=== PATIENT | female | born 1970 | race Caucasian/White ===

== ENCOUNTER 2017-04-21 09:07 | Emergency (ER) | payer OTHER ==
[2017-04-21 09:16] VITALS: BP 147/81
--- NOTE | 2017-04-21 10:08 | UC ---
Respiratory Complaint HPI - HPI Summary HPI Summary: 46 y/o female presents to the urgent care c/o productive cough, SOB for the past 17 days. Pt states cough is producing a green sputum, she fever and pleuritic chest pain after coughing yesterday. Pt has been taking /dayquill w/ o any relief of symptoms. pt denies SOB, MELCHOR, chest pain, abdominal pain, N/V/D. Pt stopped smoking 1 year ago - History of Current Complaint Hx Obtained From: Patient Hx Last Menstrual Period: ended Wednesday ?: No Onset/Duration: Gradual Onset, Lasting Weeks - 2 weeks Timing: Constant Severity Initially: Moderate Severity Currently: Moderate Pain Intensity: 0 Pain Scale Used: 0-10 Numeric Character: Cough: Productive, Sputum Description: - sputum <Meli Alcantar - Last Filed: 04/22/17 00:46> <Ne Garcia - Last Filed: 04/22/17 15:03> - History of Current Complaint Chief Complaint: UCRespiratory Stated Complaint: COUGH, SORE THROAT Time Seen by Provider: 04/21/17 10:05 - Allergies/Home Medications Allergies/Adverse Reactions: Allergies Allergy/AdvReac Type Severity Reaction Status Date / Time Sulfa Antibiotics Allergy Intermediate Hives Verified 04/21/17 09:11 PMH/Surg Hx/FS Hx/Imm Hx Previously Healthy: Yes Other Respiratory History: sleep apnea Psychological History: Anxiety, Depression - Surgical History Surgical History: Yes Surgery Procedure, Year, and Place: wisdom teeth extracted. fx finger repair. ovarian cyst - Family History Known Family History: Positive: Cardiac Disease, Hypertension, Diabetes - Social History Occupation: Employed Full-time Lives: With Family Alcohol Use: Occasionally Substance Use Type: None Smoking Status (MU): Never Smoked Tobacco Type: Cigarettes Amount Used/How Often: 1/2 ppd Length of Time of Smoking/Using Tobacco: 15 years Have You Smoked in the Last Year: No - Immunization History Most Recent Influenza Vaccination: fall 2014 <Meli Alcantar - Last Filed: 04/22/17 00:46> Review of Systems Constitutional: Fever - mild low grade fever at home Skin: Negative Eyes: Negative ENT: Negative Respiratory: Shortness Of Breath, Cough - productive with green sputum Cardiovascular: Negative Gastrointestinal: Negative Genitourinary: Negative Motor: Negative Neurovascular: Negative Musculoskeletal: Negative Neurological: Negative Psychological: Negative Is Patient Immunocompromised?: No All Other Systems Reviewed And Are Negative: Yes <Meli Alcantar - Last Filed: 04/22/17 00:46> Physical Exam Triage Information Reviewed: Yes Vital Signs: Initial Vital Signs Temp 98.9 F 04/21/17 09:12 Pulse 101 04/21/17 09:12 Resp 16 04/21/17 09:12 BP 147/81 04/21/17 09:12 Pulse Ox 98 04/21/17 09:12 - Additional Comments Vital Signs Reviewed: Yes General: well developed, well nourished female sitting in the examining table w/ o any apparent distress Eyes: Positive: Conjunctiva Clear - PERRLA, EOMI, fundi grossly normal ENT: Positive: Normal ENT inspection, Hearing grossly normal, Pharynx normal, Nasal congestion - edematous and erythematous nasal mucosa, Nasal drainage - yellowish drainage, TMs normal. Negative: Tonsillar swelling, Tonsillar exudate Neck: Positive: Supple, Nontender, No Lymphadenopathy Respiratory: no orthopnea or dyspnea. Able to speak in full sentences, no retractions or accessory muscle use, no tripod position, stridor, or head bobbing. breath sound present. B/L posterior lungs with scattered rhonchi and mild wheezes. Cardiovascular: Positive: RRR, No Murmur, Pulses Normal, Brisk Capillary Refill Abdomen Description: Positive: Nontender, No Organomegaly, Soft. Negative: CVA Tenderness (R), CVA Tenderness (L) Bowel Sounds: Positive: Present Musculoskeletal Exam: Normal Musculoskeletal: Positive: Strength Intact, ROM Intact, No Edema Neurological Exam: Normal Psychological Exam: Normal Skin Exam: Normal <Meli Alcantar - Last Filed: 04/22/17 00:46> Vital Signs: Initial Vital Signs Temp 98.9 F 04/21/17 09:12 Pulse 101 04/21/17 09:12 Resp 16 04/21/17 09:12 BP 147/81 04/21/17 09:12 Pulse Ox 98 04/21/17 09:12 <Ne Garcia - Last Filed: 04/22/17 15:03> UC Diagnostic Evaluation - Laboratory O2 Sat by Pulse Oximetry: 98 <Meli Alcantar - Last Filed: 04/22/17 00:46> - EKG Cardiac Rate: NL <Ne Garcia - Last Filed: 04/22/17 15:03> Respiratory Course/Dx - Course Course Of Treatment: 46 y/o female presents to the urgent care c/o productive cough, SOB for the past 17 days. Pt states cough is producing a green sputum, she fever and pleuritic chest pain after coughing yesterday. Pt has been taking /dayquill w/o any relief of symptoms. pt denies SOB, MELCHOR, chest pain, abdominal pain, N/V/D. Pt stopped smoking 1 year ago.Hx obtained. Pt with scattered wheezes and rhonchi in B/L posteior lungs. Chest X-ray ordered to r/o pneumonia. Impression: No active Cardiopulmonary disease observed. O2sat: 98% Pt was everyday smoker who stopped 1 year ago. Prednisone 60 mg PO ordered and Duneb treatment ordered. Pt tolerated well medications and her lungs improved. Pt states feeling better. Pt will be tX for Acute Bronchitis, Rx Z-ronaldo PO , Prednisone taper dose and Inhaler. Strongly advised to f/u with her PCP for further management. She may be developing COPD. She also has elevated BP today , advised to decrease salt in her diet and monitor BP, if it continues to be elevated to f/u with her PCP. Pt understood and agreed with D/C instructions and left the clinic hemodynamically stable. - Differential Dx/Diagnosis Differential Diagnosis/HQI/PQRI: Asthma, Bronchitis, Influenza, Laryngitis, Lower Resp Infection, Sinusitis Provider Diagnoses: 1- Acute bronchitis. 2- elevated BP w/o Hx of HTN <Meli Alcantar - Last Filed: 04/22/17 00:46> Discharge <Meli Alcantar - Last Filed: 04/22/17 00:46> <Ne Garcia - Last Filed: 04/22/17 15:03> - Discharge Plan Condition: Stable Disposition: HOME Prescriptions: Albuterol HFA INHALER* [Ventolin HFA Inhaler*] 1 - 2 puff INH Q6H PRN #1 mdi PRN Reason: bronchospasm Azithromyxin RONALDO (NF) [Z-Ronaldo (Zithromax) 250 mg tabs #6] 2 tab PO .TODAY, THEN 1 DAILY #6 tab predniSONE TAB* [Deltasone TAB*] 20 mg PO DAILY #8 tab Patient Education Materials: Acute Bronchitis (ED), Low Sodium Diet (ED) Referrals: Adeel Mari MD [Primary Care Provider] - 3 Days Additional Instructions: 1-Please take full course of antibiotic to avoid resistance. 2-Use the albuterol inhaler to alleviate cough. Increase fluid intake, rest and eat well. 3- If symptoms do not improve or worsen or your develop SOB with fever and severe wheezing please go immediately to the ER further evaluation and treatment. 4- F/u with your PCP in 2-3 days for further management 5-Your BP is elevated today please decrease salt in your diet, monitor BP and if it continues to be elevated please f/u with your PCP for further management Attestation Statement User Type: Provider - I was available for consult. This patient was seen by the VANDANA. The patient was not presented to, seen by, or examined by me. -Javier <Ne Garcia - Last Filed: 04/22/17 15:03>
[2017-04-21] MEDS ORDERED: predniSONE TAB* 20 MG PO ONE (10:19)
[2017-04-21] MEDS ORDERED: Albuterol/Ipratropium NEB.SOL* Albuterol 2.5 MG/Ipratropium 0.5 MG 3 ML INH ONE (10:19)
--- NOTE | 2017-04-21 10:43 | RAD ---
HISTORY: Productive cough, shortness of breath, fever COMPARISONS: None VIEWS: 4: Frontal dual-energy and lateral views of the chest. FINDINGS: CARDIOMEDIASTINAL SILHOUETTE: The cardiomediastinal silhouette is normal. CHRIS: The chris are normal. PLEURA: The costophrenic angles are sharp. No pleural abnormalities are noted. LUNG PARENCHYMA: The lungs are clear. ABDOMEN: The upper abdomen is clear. There is no subphrenic gas. BONES AND SOFT TISSUES: No bone or soft tissue abnormalities are noted. OTHER: None. IMPRESSION: NO ACTIVE CARDIOPULMONARY DISEASE.
== END 2017-04-21 11:17 | disposition home or self-care (01) ==
LOC: UCEAST 09:07
DX: J20.9 Acute bronchitis, unspecified (principal); R03.0 Elevated blood-pressure reading, without diagnosis of hypertension; Z87.891 Personal history of nicotine dependence; Z88.2 Allergy status to sulfonamides
CPT/HCPCS: 71020; 87651; 99212; A9270-GY; G0463; J7512

== ENCOUNTER 2017-10-18 11:36 | Emergency (ER) | payer OTHER ==
[2017-10-18 11:44] VITALS: BP 166/91
[2017-10-18] MEDS ORDERED: HYDROcodone/ACETAMIN 5-325 MG* 1 TAB PO ONE (11:51)
--- NOTE | 2017-10-18 11:52 | UC ---
Upper Extremity HPI - HPI Summary HPI Summary: Patient slipped and fell this morning landing on her right elbow. Unable to completely straighten her elbow. Neuromotor circulation intact distally - History of Current Complaint Chief Complaint: UCUpperExtremity Stated Complaint: ARM INJURY Time Seen by Provider: 10/18/17 11:48 Hx Obtained From: Patient Hx Last Menstrual Period: 09/24/17 ?: No Onset/Duration: Sudden Onset, Lasting Hours - 4, Still Present Pain Intensity: 9 Pain Scale Used: 0-10 Numeric Location Of Pain: Is Discrete @ - right elbow Character: Aching Aggravating Factor(s): Movement Alleviating Factor(s): Nothing Related History: Dominant Hand Right - Allergies/Home Medications Allergies/Adverse Reactions: Allergies Allergy/AdvReac Type Severity Reaction Status Date / Time Sulfa (Sulfonamide Allergy Hives Verified 10/18/17 11:45 Antibiotics) Home Medications: Home Medications LORazepam TAB(*) [Ativan 0.5 MG TAB (*)] 0.5 mg PO BID 10/18/17 [History Confirmed 10/18/17] PMH/Surg Hx/FS Hx/Imm Hx Previously Healthy: No Psychological History: Anxiety - Surgical History Surgical History: Yes Surgery Procedure, Year, and Place: wisdom teeth extracted. fx finger repair. ovarian cyst - Family History Known Family History: Positive: None, Cardiac Disease, Hypertension, Diabetes - Social History Occupation: Employed Full-time Lives: With Family Alcohol Use: Occasionally Substance Use Type: None Smoking Status (MU): Light Every Day Tobacco Smoker Type: Cigarettes Amount Used/How Often: 1/2 ppd Length of Time of Smoking/Using Tobacco: 15 years Have You Smoked in the Last Year: No - Immunization History Most Recent Influenza Vaccination: fall 2014 Review of Systems Constitutional: Negative Skin: Negative Eyes: Negative ENT: Negative Respiratory: Negative Cardiovascular: Negative Gastrointestinal: Negative Genitourinary: Negative Motor: Negative Neurovascular: Negative Musculoskeletal: Arthralgia - right elbow Neurological: Negative Psychological: Negative Is Patient Immunocompromised?: No All Other Systems Reviewed And Are Negative: Yes Physical Exam Triage Information Reviewed: Yes Appearance: Well-Appearing, No Pain Distress, Well-Nourished Vital Signs: Initial Vital Signs Temp 96.6 F 10/18/17 11:40 Pulse 77 10/18/17 11:40 Resp 17 10/18/17 11:40 BP 166/91 10/18/17 11:40 Pulse Ox 100 10/18/17 11:40 Vital Signs Reviewed: Yes Eye Exam: Normal Eyes: Positive: Conjunctiva Clear ENT Exam: Normal ENT: Positive: Normal ENT inspection, Hearing grossly normal. Negative: Trismus , Muffled voice, Hoarse voice Dental Exam: Normal Neck exam: Normal Neck: Positive: Supple, Nontender Respiratory Exam: Normal Respiratory: Positive: Chest non-tender, No respiratory distress, No accessory muscle use Cardiovascular Exam: Normal Cardiovascular: Positive: RRR, No Murmur, Pulses Normal, Brisk Capillary Refill Musculoskeletal Exam: Other Musculoskeletal: Positive: No Edema, Strength Limited @ - right elbow, ROM Limited @ - right elbow Neurological Exam: Normal Neurological: Positive: Alert, Muscle Tone Normal Psychological Exam: Normal Skin Exam: Normal Diagnostics - Radiology No standard instances Xray Interpretation: No Acute Changes - Patient Name: CHAY SESAY Medical Record# : [id number] Ordering Physician: Debbie Mcgrath NP Acct.#: [id number] : 1970 Age: 46 Sex: F Location: [facility] Exam Date: 10/18/17 1150 ADM Status: REG ER Order Information: ELBOW RIGHT 3+ VWS Accession Number: [id number] CPT: 63853 INDICATION: Right elbow pain after a fall COMPARISON: None. TECHNIQUE: 4 views right elbow. REPORT: The visualized bones of the right elbow are well corticated and properly aligned. There is no radiographically apparent fracture or dislocation. There is no radiographic evidence of pathologic joint effusion. IMPRESSION: No radiographically apparent fracture or dislocation involving the right elbow. If the patient's symptoms persist further follow-up imaging is recommended. <Electronically signed by Giancarlo García MD in [place]> [id number] Dictated By: Giancarlo García MD Dictated Date/Time: 10/18/171213 Transcribed Date/Time: 10/18/17 1212 Copy to: CC:Miko Dunn MD; Debbie Mcgrath SALES LEAD GENERATOR; Adeel Mari MD Imaging - [facility] Imaging - [facility] Imaging - [facility] [address] [address] ph ) ph [phone] ph ([phone]) 1 of 1 Radiology Interpretation Completed By: Radiologist Upper Extremity Course/Dx - Course Course Of Treatment: hillary wrap, sling, rice pain management, follow with orthopedic MD this week - Differential Dx/Diagnosis Provider Diagnoses: R elbow contusion, occult fracture right elbow Discharge - Sign-Out/Discharge Documenting (check all that apply): Discharge/Admit/Transfer - Discharge Plan Condition: Stable Disposition: HOME Prescriptions: Hydrocodone/Acetaminophen [Hydrocodone-Acetamin 5-325 mg] 1 each PO Q6HR PRN #8 tablet MDD 4 PRN Reason: Pain - Moderate To Severe Ibuprofen TAB* [Motrin TAB* 600 MG] 600 mg PO Q6H PRN #30 tab PRN Reason: Pain - Mild To Moderate Patient Education Materials: Contusion in Adults (ED), Hypertension (ED), Suspected Fracture (ED), R.I.C.E. Treatment (ED) Forms: *School Release Referrals: Baron Torres MD [Medical Doctor] - 3 Days Adeel Mari MD [Primary Care Provider] - 2 Weeks - Billing Disposition and Condition Condition: STABLE Disposition: Home
--- NOTE | 2017-10-18 12:18 | RAD ---
INDICATION: Right elbow pain after a fall COMPARISON: None. TECHNIQUE: 4 views right elbow. REPORT: The visualized bones of the right elbow are well corticated and properly aligned. There is no radiographically apparent fracture or dislocation. There is no radiographic evidence of pathologic joint effusion. IMPRESSION: No radiographically apparent fracture or dislocation involving the right elbow. If the patient's symptoms persist further follow-up imaging is recommended.
== END 2017-10-18 12:55 | disposition home or self-care (01) ==
LOC: UCEAST 11:36
DX: S42.401A Unspecified fracture of lower end of right humerus, initial encounter for closed fracture (principal); S50.01XA Contusion of right elbow, initial encounter; F41.9 Anxiety disorder, unspecified; F17.210 Nicotine dependence, cigarettes, uncomplicated; Z79.899 Other long term (current) drug therapy; Z88.2 Allergy status to sulfonamides; W01.0XXA Fall on same level from slipping, tripping and stumbling without subsequent striking against object, initial encounter; Y92.9 Unspecified place or not applicable
CPT/HCPCS: 99212; G0463

== ENCOUNTER 2018-02-07 09:26 | Emergency (ER) | payer OTHER ==
[2018-02-07 09:49] VITALS: BP 153/96
--- NOTE | 2018-02-07 10:23 | UC ---
Skin Complaint HPI - HPI Summary HPI Summary: 47 y/o female with h/o elevated BP, currently working with PCP on lowering presents with rash over b/l forearms since 5 days ago, increasing in redness, itchy, has been taking moms triamcinolone 0.0025%, antihistamine, and topical antibiotic x 3 days with minimal relief. Denies SOB, swelling. was weeding prir t rash occurring. - History of Current Complaint Chief Complaint: UCRash Time Seen by Provider: 02/07/18 10:08 Stated Complaint: RASH Hx Obtained From: Patient Hx Last Menstrual Period: 01/31/18 Onset/Duration: Gradual Onset, Lasting Days Skin Exposure Onset/Duration: Days Ago Onset Severity: Mild Current Severity: Moderate Pain Intensity: 0 Pain Scale Used: 0-10 Numeric - Allergy/Home Medications Allergies/Adverse Reactions: Allergies Allergy/AdvReac Type Severity Reaction Status Date / Time Sulfa (Sulfonamide Allergy Hives Verified 02/07/18 09:50 Antibiotics) Home Medications: Home Medications Phentermine/Topiramate 1 tab PO DAILY 02/07/18 [History Confirmed 02/07/18] Review of Systems Constitutional: Negative Skin: Rash Is Patient Immunocompromised?: No All Other Systems Reviewed And Are Negative: Yes PMH/Surg Hx/FS Hx/Imm Hx Previously Healthy: Yes - htn - Surgical History Surgical History: Yes Surgery Procedure, Year, and Place: wisdom teeth extracted. fx finger repair. ovarian cyst - Family History Known Family History: Positive: None, Cardiac Disease, Hypertension, Diabetes - Social History Alcohol Use: Occasionally Substance Use Type: None Smoking Status (MU): Light Every Day Tobacco Smoker Type: Cigarettes Amount Used/How Often: 1/2 ppd Length of Time of Smoking/Using Tobacco: 15 years Have You Smoked in the Last Year: No - Immunization History Most Recent Influenza Vaccination: fall 2014 Physical Exam Triage Information Reviewed: Yes Appearance: Well-Appearing, No Pain Distress, Well-Nourished Vital Signs: Initial Vital Signs Temp 98.1 F 02/07/18 09:47 Pulse 88 02/07/18 09:47 Resp 17 02/07/18 09:47 BP 153/96 02/07/18 09:47 Pulse Ox 99 02/07/18 09:47 Vital Signs Reviewed: Yes Neurological Exam: Normal Psychological Exam: Normal Skin: Positive: rashes - raised, erythematous rash with exoriations visible on b /l forarms, no burrowing, non-vesicular. in group lesions, linear in parts., Other Course/Dx - Course Course Of Treatment: likely allergic reaction from plant from weeding, steroids given, follow up wit [facility] if no improvement - Differential Diagnoses - Skin Complaint Differential Diagnoses: Allergic Reaction - Diagnoses Provider Diagnoses: urticaria from likely plant exposure Discharge - Sign-Out/Discharge Documenting (check all that apply): Patient Departure All imaging exams completed and their final reports reviewed: Yes - Discharge Plan Condition: Good Disposition: HOME Prescriptions: methylPREDNISolone [Medrol Dosepak 4 MG*] 0 mg PO .SEE SOFI INSTRUCTION #1 sofi Patient Education Materials: Urticaria (ED) Referrals: Marilyn Cortez MD [Primary Care Provider] - Additional Instructions: - Prednisone as directed to decrease swelling - Continue steroid topical cream 1-2 times a day as needed for irritation, itching. - monitor arm for redness, warmth, signs of infection - Follow up with primary doctor within 24-48 hours if no improvement - Return with shortness of breath, swelling - Billing Disposition and Condition Condition: GOOD Disposition: Home
== END 2018-02-07 10:31 | disposition home or self-care (01) ==
LOC: UCEAST 09:26
DX: L50.9 Urticaria, unspecified (principal); Z88.2 Allergy status to sulfonamides; F17.210 Nicotine dependence, cigarettes, uncomplicated
CPT/HCPCS: 99212; G0463

== ENCOUNTER 2018-02-08 12:16 | Emergency (ER) | payer OTHER ==
[2018-02-08 12:27] VITALS: BP 158/87
--- NOTE | 2018-02-08 12:38 | UC ---
Skin Complaint HPI - HPI Summary HPI Summary: rash bilateral forearm x 5 days + itchy , burning, was seen yesterday , placed on Medrol pack , getting worse today no fever , no chills was pulling weeds last week - History of Current Complaint Chief Complaint: UCRash Time Seen by Provider: 02/08/18 12:23 Stated Complaint: RECHECK OF RASH Hx Obtained From: Patient Hx Last Menstrual Period: 01/31/18 ?: No Onset/Duration: Gradual Onset, Lasting Days - 5, Still Present Timing: Constant Onset Severity: Moderate Current Severity: Severe Pain Intensity: 0 Location: Discrete - bilateral forearm Character: Pruritus, Pain, Redness, Raised, Painful Aggravating Factor(s): Touch Alleviating Factor(s): Nothing Associated Signs & Symptoms: Positive: Rash, Tenderness Related History: Possible Reaction to: Environmental Exposure - poison yokasta - Allergy/Home Medications Allergies/Adverse Reactions: Allergies Allergy/AdvReac Type Severity Reaction Status Date / Time Sulfa (Sulfonamide Allergy Hives Verified 02/08/18 12:27 Antibiotics) Review of Systems Constitutional: Negative Skin: Rash Eyes: Negative ENT: Negative Is Patient Immunocompromised?: No All Other Systems Reviewed And Are Negative: Yes PMH/Surg Hx/FS Hx/Imm Hx Respiratory History: Asthma - Surgical History Surgical History: Yes Surgery Procedure, Year, and Place: wisdom teeth extracted. fx finger repair. ovarian cyst - Family History Known Family History: Positive: None, Cardiac Disease, Hypertension, Diabetes - Social History Alcohol Use: Occasionally Substance Use Type: None Smoking Status (MU): Heavy Every Day Tobacco Smoker Type: Cigarettes Amount Used/How Often: 1/2 ppd Length of Time of Smoking/Using Tobacco: 15 years Have You Smoked in the Last Year: No - Immunization History Most Recent Influenza Vaccination: fall 2014 Physical Exam Triage Information Reviewed: Yes Appearance: Well-Appearing, No Pain Distress, Well-Nourished Vital Signs: Initial Vital Signs Temp 97.2 F 02/08/18 12:24 Pulse 67 02/08/18 12:24 Resp 18 02/08/18 12:24 BP 158/87 02/08/18 12:24 Pulse Ox 99 02/08/18 12:24 Vital Signs Reviewed: Yes Eye Exam: Normal ENT: Positive: Normal ENT inspection, Hearing grossly normal, Pharynx normal Neck: Positive: Supple, Nontender, No Lymphadenopathy Respiratory: Positive: Chest non-tender, Lungs clear, Normal breath sounds Cardiovascular: Positive: RRR, No Murmur, Pulses Normal Musculoskeletal Exam: Normal Skin: Positive: Other - maculopapulary rash on both forearms, linear spots, + erythema, tenderno touch Course/Dx - Diagnoses Provider Diagnoses: poison yokasta Discharge - Sign-Out/Discharge Documenting (check all that apply): Patient Departure All imaging exams completed and their final reports reviewed: No Studies - Discharge Plan Condition: Stable Disposition: HOME Prescriptions: Triamcinolone 0.1% CREAM(NF) [Kenalog 0.1% Cream (NF)] 1 applic TOPICAL BID #30 applic Patient Education Materials: Poison Yok[place] (ED) Referrals: Marilyn Cortez MD [Primary Care Provider] - If Needed - Billing Disposition and Condition Condition: STABLE Disposition: Home
== END 2018-02-08 12:37 | disposition home or self-care (01) ==
LOC: UCEAST 12:16
DX: L23.7 Allergic contact dermatitis due to plants, except food (principal); Z88.2 Allergy status to sulfonamides; F17.210 Nicotine dependence, cigarettes, uncomplicated
CPT/HCPCS: 99212; G0463

== ENCOUNTER 2018-12-14 11:19 | Emergency (ER) | payer OTHER ==
--- NOTE | 2018-12-14 12:43 | UC ---
Skin Complaint HPI - HPI Summary HPI Summary: 48 yo female with fibromyalgia and imflamatory poly -athropathy presents with 3 days of fever T max 100.8 muscle and joint aches seem worse than normal as does headache has had a painful right groin rash no cough no UTI symptoms no swollen glands no hot/swollen joints states her sed rate is elevated - History of Current Complaint Time Seen by Provider: 12/14/18 12:17 Stated Complaint: MELCHOR,NECK PAIN,RASH,FEVER,WEAKNESS Hx Obtained From: Patient Hx Last Menstrual Period: 11/28/18 Onset/Duration: Sudden Onset, Lasting Days Timing: Constant Onset Severity: Severe Current Severity: Severe Pain Intensity: 8 Pain Scale Used: 0-10 Numeric Location: Diffuse Character: Pain, Redness Aggravating Factor(s): Nothing Associated Signs & Symptoms: Positive: Fever, Chills, Rash, Tenderness. Negative: Nausea, Vomiting, Numbness, Thirst, Diaphoresis, Weakness, Pallor, Shivering, Difficulty Breathing, Cough, Wheezing, Hoarseness, Throat Tightening , Abdominal Pain, Lightheadedness, Syncope, Drainage, Bruising, Red Streaks, Joint Swelling - Allergy/Home Medications Allergies/Adverse Reactions: Allergies Allergy/AdvReac Type Severity Reaction Status Date / Time Sulfa (Sulfonamide Allergy Hives Verified 11/29/18 17:29 Antibiotics) PMH/Surg Hx/FS Hx/Imm Hx Previously Healthy: Yes - Fibro, inflammatory poly arthritis - Surgical History Surgical History: Yes Surgery Procedure, Year, and Place: wisdom teeth extracted. fx finger repair. ovarian cyst - Family History Known Family History: Positive: None, Cardiac Disease, Hypertension, Diabetes - Social History Alcohol Use: Occasionally Substance Use Type: None Smoking Status (MU): Heavy Every Day Tobacco Smoker Type: Cigarettes Amount Used/How Often: 1/2 ppd Length of Time of Smoking/Using Tobacco: 15 years Have You Smoked in the Last Year: No - Immunization History Most Recent Influenza Vaccination: fall 2014 Review of Systems All Other Systems Reviewed And Are Negative: Yes Constitutional: Positive: Fever, Chills Skin: Positive: Rash Eyes: Positive: Negative ENT: Positive: Negative Respiratory: Positive: Negative Cardiovascular: Positive: Negative Gastrointestinal: Positive: Negative Genitourinary: Positive: Negative Motor: Positive: Negative Neurovascular: Positive: Negative Musculoskeletal: Positive: Arthralgia, Myalgia Neurological: Positive: Headache Psychological: Positive: Negative Physical Exam Triage Information Reviewed: Yes Appearance: Well-Nourished, Pain Distress Vital Signs: Initial Vital Signs Temp 100.1 F 12/14/18 12:16 Pulse 99 12/14/18 12:16 Resp 16 12/14/18 12:16 Pulse Ox 99 12/14/18 12:16 Vital Signs Reviewed: Yes Eyes: Positive: Conjunctiva Clear ENT: Positive: Hearing grossly normal. Negative: Nasal congestion, Nasal drainage, Tonsillar swelling, Tonsillar exudate, Trismus, Muffled voice, Hoarse voice, Sinus tenderness Dental Exam: Normal Neck: Positive: Supple, Nontender, No Lymphadenopathy Respiratory: Positive: Lungs clear, Normal breath sounds, No respiratory distress, No accessory muscle use Cardiovascular: Positive: RRR, No Murmur Musculoskeletal: Positive: ROM Intact, No Edema, Other: - no red/swollen joint Neurological: Positive: Alert Psychological Exam: Normal Skin Exam: Other - approximately 3mm area that looks as though it may have been a pustule that drained with over lying cellulitis (about 4x4cm) no swollen LN Images Front/Back of Body, Lg ([place]): 1 - erythema, no vesicles Course/Dx - Diagnoses Provider Diagnosis: Cellulitis Discharge - Sign-Out/Discharge Documenting (check all that apply): Patient Departure All imaging exams completed and their final reports reviewed: No Studies - Discharge Plan Condition: Stable Disposition: HOME Prescriptions: DOXYcycline CAP(*) [DOXYcycline 100MG CAP(*)] 100 mg PO BID #14 cap Patient Education Materials: Cellulitis (ED) Referrals: Marilyn Cortez MD [Medical Doctor] - 2 Days Additional Instructions: blood work pending recheck in 48 hours sooner for worsening symptoms - Billing Disposition and Condition Condition: STABLE Disposition: Home
[2018-12-14 19:16] LABS: ABS Basophils 0.1 10^3/ul (0-0.2); ABS Lymphocytes 1.7 10^3/ul (1.0-4.8); ABS Monocytes 0.5 10^3/ul (0-0.8); ABS Neutrophils 3.2 10^3/ul (1.5-7.7); Hematocrit 45 % (35-47); Hemoglobin 15.5 g/dL (12.0-16.0); Lymphocyte % 31.3 %; Mean Corpuscular HGB Conc 34 g/dL (31-36); Mean Corpuscular Hemoglobin 28 pg (27-31); Mean Corpuscular Volume 82 fL (80-97); Mean Platelet Volume 10.1 fL (7.4-10.4); Platelet Count 204 10^3/uL (150-450); Red Blood Count 5.53 10^6 /uL (3.70-4.87); Red Cell Distribution Width 13 % (10-15); White Blood Count 5.5 10^3/uL (3.5-10.8)
[2018-12-15 12:52] LABS: Erythrocyte Sed Rate 20 mm/Hr (0-19)
== END 2018-12-14 13:03 | disposition home or self-care (01) ==
LOC: UCCORT 11:19
DX: L03.314 Cellulitis of groin (principal); R50.9 Fever, unspecified; M79.7 Fibromyalgia; M13.0 Polyarthritis, unspecified; Z88.2 Allergy status to sulfonamides; Z87.891 Personal history of nicotine dependence
CPT/HCPCS: 36415; 85025; 85652; 86618; 99212; G0463